=== PATIENT | male | born 1980 | race African-American/Black ===

== ENCOUNTER 2022-07-25 02:36 | Emergency (ER) | payer MEDICAID, OTHER ==
[~2022-07-25] VITALS: Ht 177.8 cm; Wt 74.8 kg
[2022-07-25 04:04] VITALS: BP 135/81
[2022-07-25] MEDS ORDERED: KETOROLAC TROMETHAMINE INJ 60 MG/2 ML VIAL IM ONE (04:30)
[2022-07-25] MEDS ORDERED: KETOROLAC TROMETHAMINE INJ 30 MG/ML VIAL ONE (04:46)
[2022-07-25] MEDS ORDERED: IBUP-1953 PO (04:47)
[2022-07-25] MEDS ORDERED: CLOT15CR5 TP (04:47)
--- NOTE | 2022-07-25 04:56 | NUR ---
Patient discharged to home in stable condition. Written and verbal after care instructions given. Patient verbalizes understanding of instruction.
== END 2022-07-25 04:56 | disposition home or self-care (01) ==
LOC: ER 02:36
DX: M79.671 Pain in right foot (principal); M79.672 Pain in left foot; R51.9 Headache, unspecified; Z79.899 Other long term (current) drug therapy
CPT/HCPCS: 99283; 96372; J1885